=== PATIENT | female | born 1995 | race Caucasian/White ===

== ENCOUNTER 2017-02-08 15:05 | Emergency (ER) | payer OTHER ==
[~2017-02-08] VITALS: Ht 165.1 cm; Wt 66.7 kg
[2017-02-08 15:26] VITALS: TEMP 36.8; Ht 165.1 cm; Wt 66.7 kg
[2017-02-08] MEDS ORDERED: ONDANSETRON INJ 2 MG/ML 2 ML VIAL IV STA (15:45)
[2017-02-08] MEDS ORDERED: SODIUM CHLORIDE 0.9% 1000ML 1,000 ML IV STA (15:45)
[2017-02-08] MEDS ORDERED: BCPILLS PO (15:56)
[2017-02-08 15:58] LABS: BASO % 0.5 %; BASO ABS # 0.04 K/uL (0-0.2); COMPLETE YES; EOS % 1.1 %; HEMATOCRIT 36.9 % (37-47); IG% 0.3 %; LYMPH % 19.4 %; LYMPH ABS # 1.55 K/uL (1.2-3.4); MEAN CELL VOLUME 85.4 fL (80-100); MEAN CORPUSCULAR HEMOGLOBIN 28.9 pg (25-34); MEAN CORPUSCULAR HGB CONC 33.9 g/dl (32-36); MEAN PLATELET VOLUME 9.9 fL (7.4-10.4); MONO % 8.6 %; NEUT % 70.1 %; PLATELET COUNT 253 K/uL (130-400); RED BLOOD COUNT 4.32 M/uL (4.2-5.4); WHITE BLOOD COUNT 7.99 K/uL (4.8-10.8)
[2017-02-08 16:21] LABS: BUN/CREATININE RATIO 11.5 (10-20); CALCIUM 9.2 mg/dl (8.5-10.1); CREATININE 0.92 mg/dl (0.60-1.20); POTASSIUM 3.5 mmol/L (3.5-5.1)
--- NOTE | 2017-02-08 17:00 | DIAGNOSTIC IMAGING REPORT ---
PELVIC COMPLETE NON OB CLINICAL HISTORY: RLQ ABDOMINAL PAIN - R/O R ovarian cyst PAIN COMPARISON STUDY: None FINDINGS: The uterus measured 7.5 cm. The endometrial stripe measured 6 mm. The right ovary measured 3.1 cm with several small subcentimeter follicular cysts. The left ovary measured 2.3 cm with several small subcentimeter follicular cysts. There is no ultrasonographic evidence of ovarian torsion. It should be noted that ovarian torsion can be present with normal Doppler ultrasonographic findings. There was no evidence of pathologic free pelvic fluid. IMPRESSION: Negative pelvic ultrasound The above report was generated using voice recognition software. It may contain grammatical, syntax or spelling errors. Electronically signed by: Billy Taylor M.D. 02/08/2017 4:59 PM Dictated Date/Time: 02/08/2017 4:57 PM
[2017-02-08 18:11] LABS: URINE APPEARANCE CLEAR (CLEAR); URINE BILIRUBIN NEG (NEG); URINE COLOR YELLOW; URINE EPITHELIAL CELL AUTO >30 /lpf (0-5); URINE NITRITE NEG (NEG); URINE SPECIFIC GRAVITY 1.009 (1.000-1.030); UROBILINOGEN NEG (NEG)
[2017-02-08] MEDS ORDERED: OPTIRAY 320 IV PRN (18:15)
[2017-02-08 18:16] LABS: MANUAL MICROSCOPIC REQUIRED? NO; REVIEW REQ? NO
--- NOTE | 2017-02-08 18:30 | DIAGNOSTIC IMAGING REPORT ---
ABD/PELVIS IV AND ORAL CONT CT DOSE: 303.17 mGy.cm HISTORY: Pain RLQ ABDOMINAL PAIN/GI TECHNIQUE: Multiaxial CT images of the abdomen and pelvis were performed following the use of intravenous and oral contrast. A dose lowering technique was utilized adhering to the principles of ALARA. COMPARISON STUDY: None. FINDINGS: Lung bases are clear. Liver spleen and pancreas are unremarkable. Kidneys enhance uniformly. Bowel pattern is nonobstructive. Appendix is normal. There are several small mesenteric nodes. These do not exceed 1 cm. Bladder is midline. There is no significant free fluid within pelvic cul-de-sac. IMPRESSION: 1. Normal appendix. 2. Mild mesenteric adenitis. 3. Otherwise negative study. The above report was generated using voice recognition software. It may contain grammatical, syntax or spelling errors. Electronically signed by: Billy Taylor M.D. 02/08/2017 6:28 PM Dictated Date/Time: 02/08/2017 6:26 PM
[2017-02-08] MEDS ORDERED: ONDA4TAB10 SL (18:45)
[2017-02-08 18:54] VITALS: BP 122/71; PULSE 55; O2SAT 99
--- NOTE | 2017-02-08 20:53 | EMERGENCY ROOM VISIT NOTE ---
History First contact with patient: 15:29 Chief Complaint: ABDOMINAL PAIN Stated Complaint: SYPTOMS OF APPENDICITIS Nursing Triage Summary: RLQ pain yesterday. Pt states, "I was exercising at the time so didn't think much of it". Nausea since yesterday, diarrhea x 2. Decreased appetite. Pain worse today. Pt sent from [facility] to r/o [facility]. Pt states, "I haven't had a normal bm today. Everything I eat goes right through me." History of Present Illness The patient is a 21 year old female who presents to the Emergency Room with complaints of right lower quadrant abdominal pain since last evening. The patient reports discomfort after a kickboxing class. She thought she pulled a muscle in the abdomen, but the pain has persisted and slightly worsened. The patient reports that she has felt fatigued and has had a poor appetite since last night. She also noticed nausea last evening as well. After eating a bagel in class today, the patient did have diarrhea 2. The patient denies any fevers or chills. She was seen at [facility] and referred here for further workup. The patient denies any recent urinary symptoms, bloody/mucus stools or constipation. She also denies any history of GI illness, ovarian cysts, frequent UTI or pyelonephritis. The patient is currently not sexually active. Last menstruation was 1.5 weeks ago, and denies any vaginal drainage. Review of Systems HEENT: Denies dizziness, visual problems, hearing loss, tinnitus. Denies difficulty swallowing or oral lesions. PULMONARY: Denies cough, shortness of breath, sputum production or hemoptysis. CARDIOVASCULAR: Denies chest pain, palpitations, dyspnea on exertion, orthopnea or peripheral edema. GASTROINTESTINAL: See history of present illness. GENITOURINARY: Denies dysuria, frequency, urgency or nocturia. NEUROLOGIC: Denies history of epilepsy, CVA, TIA or chronic headaches. MUSCULOSKELETAL: Denies history of joint tenderness/swelling. SKIN: Denies rashes or lesions. PSYCHIATRIC: Denies history of depression or mental illness. ENDOCRINE: Denies history of diabetes or thyroid disorders. Past Medical/Surgical History Medical Problems: (1) Allergic rhinitis (2) Asthma (3) History of mononucleosis Surgical Problems: (1) No history of previous surgery Family History Unremarkable Social History Smoking Status: Never Smoker Alcohol Use: occasionally Marital Status: single Occupation Status: [employer] student Current/Historical Medications Scheduled Control Pills ( Control Pills), 1 TAB PO DAILY Ondasetron Odt (Zofran Odt), 4 MG SL Q6H Physical Exam Vital Signs Date Time Temp Pulse Resp B/P (MAP) Pulse Ox O2 Delivery O2 Flow Rate FiO2 02/08/17 18:54 55 16 122/71 99 02/08/17 17:50 62 18 127/77 100 Room Air 02/08/17 15:26 36.8 65 18 142/80 100 Room Air Physical Exam CONSTITUTIONAL: Healthy and well nourished. Alert and oriented X 3 with positive affect. Patient does not appear acutely ill or in any acute distress. HEENT: Normocephalic, atraumatic. Pupils equal, round and reactive. No scleral icterus or conjunctival injection/pallor. NECK: Full active range of motion without discomfort. RESPIRATORY: Clear to auscultation bilaterally with no wheezing, crackles, rhonchi or stridor. CARDIOVASCULAR: Regular rate and rhythm with no murmurs, rubs or gallops. GASTROINTESTINAL: Bowel sounds present in all quadrants. Should has a positive McBurney's point tenderness and mildly positive Rovsing sign. Positive heel tap and psoas sign. Negative CVA tenderness. No abdominal rigidity, guarding or rebound. MUSCULOSKELETAL: Full range of motion of all joints without discomfort. No focal tenderness through the right SI joint. Negative logroll. INTEGUMENTARY: No rash or other significant dermatologic conditions noted. NEUROLOGIC: Cranial nerves II-XII grossly intact. No focal neurologic deficits noted. Medical Decision & Procedures ER Provider Diagnostic Interpretation: Pelvic ultrasound does not show any evidence for ovarian cyst, torsion or other acute intrapelvic findings. Radiologist report is as follows: PELVIC COMPLETE NON OB CLINICAL HISTORY: RLQ ABDOMINAL PAIN - R/O R ovarian cyst PAIN COMPARISON STUDY: None FINDINGS: The uterus measured 7.5 cm. The endometrial stripe measured 6 mm. The right ovary measured 3.1 cm with several small subcentimeter follicular cysts. The left ovary measured 2.3 cm with several small subcentimeter follicular cysts. There is no ultrasonographic evidence of ovarian torsion. It should be noted that ovarian torsion can be present with normal Doppler ultrasonographic findings. There was no evidence of pathologic free pelvic fluid. IMPRESSION: Negative pelvic ultrasound Enhanced CT of the abdomen and pelvis shows a mild mesenteric adenitis, without any evidence for acute appendicitis, obstruction or other acute findings. Radiologist report is as follows: ABD/PELVIS IV AND ORAL CONT CT DOSE: 303.17 mGy.cm HISTORY: Pain RLQ ABDOMINAL PAIN/GI TECHNIQUE: Multiaxial CT images of the abdomen and pelvis were performed following the use of intravenous and oral contrast. A dose lowering technique was utilized adhering to the principles of ALARA. COMPARISON STUDY: None. FINDINGS: Lung bases are clear. Liver spleen and pancreas are unremarkable. Kidneys enhance uniformly. Bowel pattern is nonobstructive. Appendix is normal. There are several small mesenteric nodes. These do not exceed 1 cm. Bladder is midline. There is no significant free fluid within pelvic cul-de-sac. IMPRESSION: 1. Normal appendix. 2. Mild mesenteric adenitis. 3. Otherwise negative study. Laboratory Results 02/08/17 15:48 Red Blood Count 4.32, Mean Corpuscular Volume 85.4, Mean Corpuscular Hemoglobin 28.9, Mean Corpuscular Hemoglobin Concent 33.9, Mean Platelet Volume 9.9, Neutrophils (%) (Auto) 70.1, Lymphocytes (%) (Auto) 19.4, Monocytes (%) (Auto) 8.6, Eosinophils (%) (Auto) 1.1, Basophils (%) (Auto) 0.5, Neutrophils # (Auto) 5.60, Lymphocytes # (Auto) 1.55, Monocytes # (Auto) 0.69, Eosinophils # (Auto) 0.09, Basophils # (Auto) 0.04 02/08/17 15:48 Test 02/08/17 15:48 02/08/17 17:52 White Blood Count 7.99 K/uL (4.8-10.8) Red Blood Count 4.32 M/uL (4.2-5.4) Hemoglobin 12.5 g/dL (12.0-16.0) Hematocrit 36.9 % (37-47) Mean Corpuscular Volume 85.4 fL (80-100) Mean Corpuscular Hemoglobin 28.9 pg (25-34) Mean Corpuscular Hemoglobin Concent 33.9 g/dl (32-36) Platelet Count 253 K/uL (130-400) Mean Platelet Volume 9.9 fL (7.4-10.4) Neutrophils (%) (Auto) 70.1 % Lymphocytes (%) (Auto) 19.4 % Monocytes (%) (Auto) 8.6 % Eosinophils (%) (Auto) 1.1 % Basophils (%) (Auto) 0.5 % Neutrophils # (Auto) 5.60 K/uL (1.4-6.5) Lymphocytes # (Auto) 1.55 K/uL (1.2-3.4) Monocytes # (Auto) 0.69 K/uL (0.11-0.59) Eosinophils # (Auto) 0.09 K/uL (0-0.5) Basophils # (Auto) 0.04 K/uL (0-0.2) RDW Standard Deviation 39.7 fL (36.4-46.3) RDW Coefficient of Variation 12.7 % (11.5-14.5) Immature Granulocyte % (Auto) 0.3 % Immature Granulocyte # (Auto) 0.02 K/uL (0.00-0.02) Anion Gap 8.0 mmol/L (3-11) Est Creatinine Clear Calc Drug Dose 87.8 ml/min Estimated GFR () 103.9 Estimated GFR (Non- 89.6 BUN/Creatinine Ratio 11.5 (10-20) Calcium Level 9.2 mg/dl (8.5-10.1) Total Bilirubin 0.4 mg/dl (0.2-1) Direct Bilirubin 0.1 mg/dl (0-0.2) Aspartate Amino Transf (AST/SGOT) 20 U/L (15-37) Alanine Aminotransferase (ALT/SGPT) 19 U/L (12-78) Alkaline Phosphatase 68 U/L (45-117) Total Protein 7.6 gm/dl (6.4-8.2) Albumin 3.6 gm/dl (3.4-5.0) Lipase 100 U/L (73-393) Urine Color YELLOW Urine Appearance CLEAR (CLEAR) Urine pH 7.0 (4.5-7.5) Urine Specific Goode 1.009 (1.000-1.030) Urine Protein NEG (NEG) Urine Glucose (UA) NEG (NEG) Urine Ketones NEG (NEG) Urine Occult Blood NEG (NEG) Urine Nitrite NEG (NEG) Urine Bilirubin NEG (NEG) Urine Urobilinogen NEG (NEG) Urine Leukocyte Esterase TRACE (NEG) Urine WBC (Auto) 1-5 /hpf (0-5) Urine RBC (Auto) 0-4 /hpf (0-4) Urine Hyaline Casts (Auto) 1-5 /lpf (0-5) Urine Epithelial Cells (Auto) >30 /lpf (0-5) Urine Bacteria (Auto) NEG (NEG) Urine Test NEG (NEG) The above labs were reviewed and were grossly normal. Urine dip was performed and was normal. Urine was not completed in the emergency department. Urine microscopy and urine were normal and negative, respectively. Medications Administered Medications (Trade) Dose Ordered Sig/Bette Route Start Time Stop Time Status Last Admin Dose Admin Sodium Chloride 1,000 ml @ 999 mls/hr Q1H1M STAT IV 02/08/17 15:45 02/08/17 16:45 DC 02/08/17 15:58 999 MLS/HR Ondansetron HCl (Zofran Inj) 4 mg NOW STAT IV 02/08/17 15:45 02/08/17 15:48 DC 02/08/17 15:58 4 MG Procedure 1. IV hydration: The patient was administered normal saline 1 L bolus 2. IV medications: Zofran 4 mg IVP ED Course Patient history and physical exam were performed. Nurse's notes were reviewed. Vital signs were reviewed and were normal. I also reviewed documentation from [facility]. Physical exam is concerning for possible acute appendicitis. I did suggest further laboratory and imaging workup. IV access was established, and labs were drawn. The patient was hydrated with normal saline, and was administered IV Zofran for nausea. She refused any analgesics on initial exam. Review of labs did not show any concerning findings. Pelvic ultrasound was normal. Enhanced CT of the abdomen and pelvis suggest a mesenteric adenitis. There is no evidence for acute appendicitis, bowel obstruction or free air at this time. Findings were discussed with the patient. An educational handout was provided. The patient was given instructions on a liquid/bland diet for now. The patient will be provided a prescription for Zofran as needed for nausea. She was encouraged to take ibuprofen or Tylenol as needed for pain relief. I did suggest that she follow-up with [facility] in the next 2-3 days if symptoms persist, returning to the emergency department for any progressively worsening pain, vomiting, developing fever or other concerning symptoms. The patient was happy with plan of care, voiced understanding of all discharge instructions, and denied any significant pain or nausea at the time of discharge. Medical Decision Workup today, including CT scanning is suggestive of a mesenteric adenitis. Point, the patient does not appear to be dehydrated. She has no significant lab abnormalities. CT does not suggest acute appendicitis. The patient is afebrile and has no leukocytosis to suggest overwhelming infection. Clinical exam also is not suggestive of pyelonephritis. Laboratory studies also do not suggest acute pancreatitis, cholecystitis or UTI. Medication Reconcilliation Current Medication List: was personally reviewed by me Blood Pressure Screening Patient's blood pressure: Normal blood pressure Impression Primary Impression: Acute mesenteric adenitis Departure Information Prescriptions Ondasetron Odt (ZOFRAN ODT) 4 Mg Tab 4 MG SL Q6H for Nausea, #10 TAB Prov: David Stanley PA 02/08/17 Referrals No Doctor, Assigned (PCP) Patient Instructions My [facility]
== END 2017-02-08 18:56 | disposition home or self-care (01) ==
LOC: C.EDB 15:08 → C.EDA 18:56
DX: I88.0 Nonspecific mesenteric lymphadenitis (principal); J45.909 Unspecified asthma, uncomplicated; Z79.3 Long term (current) use of hormonal contraceptives